=== PATIENT | female | born 1980 | race Hispanic/Latino ===

== ENCOUNTER 2020-03-21 10:19 | Outpatient (CLI) | payer OTHER, SELFPAY ==
--- NOTE | ~2020-03-21 | MM_ITS ---
EXAMINATION: MM screening gretchen BI w chacorta HISTORY: Screening mammogram TECHNIQUE: Craniocaudal and mediolateral oblique 3-D tomosynthesis images were obtained and synthetic 2-D images were generated. CAD analysis was submitted and interpreted. COMPARISON: 02/23/2019 bilateral digital screening mammogram BREAST PARENCHYMAL COMPOSITION: The breasts are heterogeneously dense, which may obscure small masses . FINDINGS: There is no evidence of suspicious mass, calcification, or architectural distortion to sugg est malignancy in either breast. There has been no suspicious interval change. IMPRESSION: 1. No mammographic evidence of malignancy. 2. Recommend routine screening mammography in one year. BI-RADS Category 1: Negative Reviewed, dictated and finalized at location A. 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
== END 2020-03-21 10:20 | disposition home or self-care (01) ==
PROVIDERS: PCP Internal Medicine; Visit Provider Obstetrics & Gynecology
DX: Z12.31 Encounter for screening mammogram for malignant neoplasm of breast (principal)
CPT/HCPCS: 77063; 77067

== ENCOUNTER 2020-04-09 14:58 | Outpatient (CLI) | payer OTHER, SELFPAY ==
--- NOTE | ~2020-04-09 | US_ITS ---
EXAMINATION: US pelvic complete w TV DATE: 04/09/2020 15:55 INDICATION: Uterine hypertrophy Comparison:Ultrasound dated 06/03/2017 TECHNIQUE: Multiple transabdominal and endovaginal sonographic images of the pelvis performed. FINDINGS: The uterus measures 8.1 x 5.3 x 3.6 cm. There is a uterine fibroid measuring 6.3 x 6 x 5.2 cm The endometrial complex measures 8 mm. The right ovary measures 2.9 x 2.4 x 2 cm and the left ovary is not visualized. There is a 2.1 cm rig ht ovarian cyst. There is no free fluid in the pelvis. There are no abnormal masses seen on either side. IMPRESSION: 1. Uterine fibroid measuring 6.3 cm maximum dimension. 2: 2.1 cm right ovarian cyst. Reviewed, dictated and finalized at location A. 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
== END 2020-04-09 14:59 | disposition home or self-care (01) ==
PROVIDERS: PCP Internal Medicine; Visit Provider Obstetrics & Gynecology
DX: N85.2 Hypertrophy of uterus (principal); D25.9 Leiomyoma of uterus, unspecified; N83.201 Unspecified ovarian cyst, right side
CPT/HCPCS: 76830; 76856

== ENCOUNTER → 2020-08-02 09:15 | Outpatient (CLI) | payer OTHER, SELFPAY ==
[2020-08-02 19:39] LABS: SARS-CoV-2 RNA PCR Negative
== END ==
PROVIDERS: PCP Internal Medicine; Visit Provider Internal Medicine
DX: R68.89 Other general symptoms and signs (principal); Z20.822 Contact with and (suspected) exposure to COVID-19
CPT/HCPCS: C9803; U0003; U0005

== ENCOUNTER → 2020-12-06 01:08 | Outpatient (CLI) | payer OTHER, SELFPAY ==
[2020-12-06 20:12] LABS: SARS-CoV-2 RNA PCR Negative
== END ==
PROVIDERS: PCP Internal Medicine; Visit Provider Nurse Practitioner
DX: R51.9 Headache, unspecified (principal); R19.7 Diarrhea, unspecified; Z20.822 Contact with and (suspected) exposure to COVID-19
CPT/HCPCS: C9803; U0003; U0005

== ENCOUNTER 2020-12-13 11:41 | Outpatient (CLI) | payer OTHER, SELFPAY ==
--- NOTE | ~2020-12-13 | XR_ITS ---
EXAMINATION: XR chest 2V EXAM DATE: 12/13/2020 11:56 INDICATION: R05 - Cough, shortness of breath, midsternal chest pain since Wednesday. TECHNIQUE: Frontal and lateral projections of the chest obtained and reviewed. There is no prior rigoberto dy for comparison. FINDINGS: Approximately 5 cm rounded left midlung zone opacity, most likely pneumonia. The lungs are otherwise clear. There are no pleural effusions. The cardiomediastinal silhouette is within normal limits. There is no pneumothorax suspected. The bones and soft tissues are unremarkable. IMPRESSION: Focal left lung opacity could be bacterial or viral pneumonia. A one-month follow-up x-ra y is recommended. I phoned 's office, is presently closed. Patient's phone number [phone], I discussed the results with the patient. She states that she had recent exposure to COVID but a negative COVID test. COVID p neumonia more typically is bilateral. I recommended she telephone her doctor's office after 1 p.m. wh en they open, they should be able to view these results. Reviewed, dictated and finalized at location A. IMPRESSION: Focal left lung opacity could be bacterial or viral pneumonia. A on e-month follow-up x-ray is recommended. I phoned 's office, is presently closed. Patient's phone number [phone], I discussed the results with the patient. She states that she had recent exposure to COVID but a negative COVID test. COVID pneumonia more typically is bilatera l. I recommended she telephone her doctor's office after 1 p.m. when they open, they should be able to view these results.
== END 2020-12-13 11:42 | disposition home or self-care (01) ==
LOC: ANHIMG 11:47
PROVIDERS: PCP Internal Medicine; Visit Provider Internal Medicine
DX: R05 Cough (principal); R06.02 Shortness of breath; R91.8 Other nonspecific abnormal finding of lung field
CPT/HCPCS: 71046

== ENCOUNTER 2020-12-13 13:19 | Emergency (ER) | payer OTHER, SELFPAY ==
--- NOTE | ~2020-12-13 | XR_ITS ---
EXAMINATION: XR chest 1V portable DATE: 12/13/2020 13:45 INDICATION: Chest pain. Shortness of breath. TECHNIQUE: A single frontal view of the chest was obtained. COMPARISON: Chest 2 views 12/13/2020 at 11:51 AM FINDINGS: There are patchy airspace opacities in left mid and lower lung zones. No pleural effusion o r pneumothorax. The heart size is normal. IMPRESSION: 1. Patchy airspace opacities in left mid and lower lung zones, consistent with pneumonia. Reviewed, dictated and finalized at location A.
[2020-12-13 13:26] VITALS: BP 132/72; PULSE 98; RESP 20; TEMP 36.8; O2SAT 99
--- NOTE | 2020-12-13 13:29 | ECG_ITS ---
Measurements Intervals [place] Rate: 96 P: 56 MN: 134 QRS: 42 QRSD: 90 T: 8 QT: 351 QTc: 445 Interpretive Statements SINUS RHYTHM INCOMPLETE RIGHT BUNDLE BRANCH BLOCK BORDERLINE T WAVE ABNORMALITY- INFERIOR LEADS BORDERLINE ECG Electronically Signed On 12-13-2020 14:09:07 CDT by Bryant Gates D.O.
[2020-12-13 13:36] VITALS: O2SAT 99
[2020-12-13 13:46] LABS: Basophils Percent Auto 0.2 % (0.2-1.2); Eosinophils Percent Auto 0.2 % (0-4.4); Hematocrit 38.7 % (37.0-47.0); Hemoglobin 12.9 g/dL (12.0-15.0); Immature Granulocyte Absolute 0.01 K/mm3 (0.00-0.031); Immature Granulocyte Percent A 0.2 % (0-0.5); Lymphocytes Absolute Auto 1.22 K/mm3 (0.9-3.2); Lymphocytes Percent Auto 22.8 % (18.3-44.2); Mean Corpuscular HGB Conc 33.3 g/dl (32-36); Mean Corpuscular Hemoglobin 27.9 pg (26-34); Mean Corpuscular Volume 83.8 fl (80-100); Mean Platelet Volume 10.2 fl (7.4-10.4); Monocytes Absolute Auto 0.3 K/mm3 (0.1-0.6); Monocytes Percent Auto 5.6 % (2.6-8.5); Neutrophils Absolute Auto 3.8 K/mm3 (1.3-6.7); Platelet Count Result 175 k/mm3 (150-375); Red Blood Count 4.62 M/mm3 (4.2-5.4); Red Cell Distribution Width 13.4 % (11.5-14.5); White Blood Count 5.3 K/mm3 (4.5-10.0)
--- NOTE | 2020-12-13 13:51 | ED.URI ---
HPI - URI/Sore Throat General Chief Complaint: Upper Respiratory Infection Stated Complaint: Dx Pneumonia today Time Seen by Provider: 12/13/20 13:34 Source: patient Mode of arrival: ambulatory Limitations: no limitations History of Present Illness HPI Narrative: Patient is a 40-year-old female complaining of cough, chest congestion, chest pain when coughing, fever and chills for the past 3 days. Patient states that her cough is productive, clear sputum. Patient states that her tested positive for Covid 3 days ago. Patient denies any shortness of breath, abdominal pain, nausea, vomiting, or diarrhea. Related Data Home Medications Medication Instructions Recorded Confirmed No Home Medications 12/13/20 12/13/20 Allergies Allergy/AdvReac Type Severity Reaction Status Date / Time No Known Allergies Allergy Verified 12/13/20 13:37 Review of Systems Review of Systems: All systems reviewed & are unremarkable except as noted in HPI and below Constitutional: Constitutional: Denies body ache(s), Denies excessive sweating, Denies fatigue, Denies headache(s), Denies lethargy, Denies malaise, Denies weakness and Denies weight loss Eyes: Eyes: Denies blurry vision, Denies change in vision and Denies loss of vision ENT: Denies dizziness, Denies ear discharge, Denies headache(s), Denies lip swelling, Denies epistaxis, Denies nasal congestion, Denies neck pain, Denies throat swelling and Denies tongue swelling Cardiovascular: Cardiovascular: Denies chest pain, Denies chest pain at rest, Denies chest pain with activity, Denies diaphoresis, Denies rapid heart rate, Denies edema, Denies irregular heart rhythm, Denies lightheadedness, Denies palpitations, Denies dyspnea and Denies dyspnea on exertion Respiratory: Respiratory: Denies hemoptysis, Denies dyspnea and Denies dyspnea on exertion Gastrointestinal: Gastrointestinal: Denies abdominal pain, Denies melena, Denies hematochezia, Denies diarrhea, Denies nausea, Denies vomiting and Denies hematemesis Musculoskeletal: Musculoskeletal: Denies abnormal gait, Denies deformity, Denies joint swelling, Denies limited range of motion, Denies neck pain and Denies numbness Neurologic: Denies Abnormal speech present, Denies abnormal gait, Denies confusion, Denies dizziness, Denies headache(s), Denies focal weakness, Denies loss of vision, Denies numbness, Denies Other visual disturbances, Denies Sensory deficit (Neuro) and Denies weakness Psychiatric: Psychiatric: Denies confusion, Denies depression, Denies auditory hallucinations, Denies homicidal ideation and Denies suicidal ideation Endocrine: Endocrine: Denies cold intolerance, Denies excessive sweating, Denies fatigue, Denies heat intolerance and Denies palpitations Hematologic/Lymphatic: Hematologic/Lymphatic: Denies easy bleeding and Denies easy bruising Allergic/Immunologic: Allergic/Immunologic: Denies lip swelling, Denies throat swelling and Denies tongue swelling PMFSH Family History Family History Mother Patient's mother is in good health Father Patient's father is in good health Sibling Patient's sister is in good health Social History Social History Smoking status: Never smoker Second hand tobacco smoke exposure: No Alcohol intake: never Comments Past medical history: None Family history: Negative for coronary disease or [place] Social history: Non-smoker no EtOH or drug use Exam Const: General: cooperative, healthy appearing, comfortable, no acute distress, well developed, alert and awake; No confusion Orientation/consciousness: oriented to person, oriented to place, oriented to time, patient oriented x3 and No confusion Limitations: no limitations HENMT: Head: normal to inspection, normocephalic and atraumatic Ears: hearing grossly normal bilaterally, TM normal on the right and TM normal on the le
[2020-12-13 14:02] LABS: INR 0.9; Prothrombin Time 12.2 Seconds (11.1-14.7)
[2020-12-13 14:03] LABS: Partial Thromboplastin Time 32.8 SECONDS (22.3-36.8)
[2020-12-13 14:06] LABS: Anion Gap 10 mmol/L (8-16); Blood Urea Nitrogen 7 mg/dL (7-17); Calcium 8.2 mg/dL (8.4-10.2); Carbon Dioxide 25 mmol/L (22-30); Chloride 100 mmol/L (98-107); Estimated CRCL calculation 112 ml/min; Estimated Glomerular Filt Rate > 60; Glucose 101 mg/dL (65-110); Sodium 135 mmol/L (137-145)
[2020-12-13 14:16] LABS: Troponin I < 0.012 ng/mL (0.000-0.034)
[2020-12-13 14:37] VITALS: BP 116/63; PULSE 100; RESP 19; O2SAT 100
[2020-12-13 17:08] LABS: Troponin I < 0.012 ng/mL (0.000-0.034)
[2020-12-13] MEDS: POTASSIUM CHLORIDE 20 MEQ PACKET (FOR LIQUID) 40 MEQ PO (17:25)
[2020-12-13 17:36] VITALS: BP 115/76; PULSE 98; RESP 20; O2SAT 99
[2020-12-14 22:45] LABS: SARS-CoV-2 RNA PCR Positive
== END 2020-12-13 17:37 | disposition home or self-care (01) ==
PROVIDERS: Emergency Medicine; Emergency Provider Emergency Medicine; PCP Internal Medicine
DX: U07.1 COVID-19 (principal); J12.82 Pneumonia due to coronavirus disease 2019; I45.10 Unspecified right bundle-branch block; R94.31 Abnormal electrocardiogram [ECG] [EKG]
CPT/HCPCS: 36415; 71045; 80048; 83605; 84484; 85025; 85610; 85730; 87040; 93005; 96374; 99284; A9270; C9803; J1100; U0003; U0005

== ENCOUNTER 2021-01-16 15:32 | Outpatient (CLI) | payer OTHER, SELFPAY ==
--- NOTE | ~2021-01-16 | XR_ITS ---
XR chest 2V DATE: 01/16/2021 15:55 INDICATION: Covid positive one month TECHNIQUE: PA and lateral views COMPARISON: 12/13/2020 portable AP chest 12/13/2020 2 view chest FINDINGS: Normal heart size. No hilar or mediastinal enlargement. No pulmonary infiltrate or consol idation, pulmonary vascular congestion or pleural effusion or pneumothorax. There is discoid atelecta sis or scar in the left lower lobe. IMPRESSION: Discoid atelectasis or scar, left lower lobe Reviewed, dictated and finalized at location B.
== END 2021-01-16 15:33 | disposition home or self-care (01) ==
LOC: ANHIMG 15:36
PROVIDERS: PCP Internal Medicine; Visit Provider Nurse Practitioner
DX: J12.82 Pneumonia due to coronavirus disease 2019 (principal); U07.1 COVID-19; R91.8 Other nonspecific abnormal finding of lung field
CPT/HCPCS: 71046

== ENCOUNTER 2021-04-24 08:12 | Outpatient (CLI) | payer OTHER, SELFPAY ==
--- NOTE | ~2021-04-24 | MM_ITS ---
EXAMINATION: MM screening gretchen BI w chacorta HISTORY: Screening mammogram TECHNIQUE: Craniocaudal and mediolateral oblique 3-D tomosynthesis images were obtained and synthetic 2-D images were generated. CAD analysis was submitted and interpreted. COMPARISON: 04/07/2020, 02/23/2019 bilateral screening mammogram examinations BREAST PARENCHYMAL COMPOSITION: The breasts are heterogeneously dense, which may obscure small masses . FINDINGS: There is no evidence of suspicious mass, calcification, or architectural distortion to sugg est malignancy in either breast. There has been no suspicious interval change. IMPRESSION: 1. No mammographic evidence of malignancy. 2. Recommend routine screening mammography in one year. BI-RADS Category 1: Negative Reviewed, dictated and finalized at location A. 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
== END 2021-04-24 08:13 | disposition home or self-care (01) ==
PROVIDERS: PCP Internal Medicine; Visit Provider Obstetrics & Gynecology
DX: Z12.31 Encounter for screening mammogram for malignant neoplasm of breast (principal)
CPT/HCPCS: 77063; 77067

== ENCOUNTER → 2021-05-02 09:58 | Outpatient (CLI) | payer OTHER, SELFPAY ==
[2021-05-03 23:20] LABS: SARS-CoV-2 RNA PCR Negative
== END ==
PROVIDERS: PCP Internal Medicine; Visit Provider Internal Medicine
DX: R68.89 Other general symptoms and signs (principal); Z20.822 Contact with and (suspected) exposure to COVID-19
CPT/HCPCS: C9803; U0003; U0005

== ENCOUNTER 2021-08-05 13:42 | Outpatient (CLI) | payer OTHER, SELFPAY ==
--- NOTE | ~2021-08-05 | US_ITS ---
EXAMINATION: US pelvic complete w TV EXAM DATE: 08/05/2021 14:28 INDICATION: N85.2 - Hypertrophy of uterus. TECHNIQUE: Pelvic transabdominal and transvaginal sonogram was performed. There are multiple graysca le and Doppler images available for interpretation. Comparison is made to prior examination from 03/20. FINDINGS: Uterus measures 9.3 x 8.4 x 5.8 cm, with a solid mass in the fundus measuring 6.5 x 7.9 x 5.2, a fibroid. Measurements on previous exam where 6.0 x 6.3 x 5.2. Endometrial stripe measures 6 mm , within normal limits. There is no free pelvic fluid. Right adnexa: The ovary measures 3.0 x 1.3 x 1.1 cm and is morphologically normal. Ovarian vascular f low confirmed. Left adnexa: The ovary measures 2.3 x 2.0 x 1.7 cm and is morphologically normal. Ovarian vascular fl ow confirmed. IMPRESSION: Large fundal fibroid, mild increase in size. Reviewed, dictated and finalized at location A.
== END 2021-08-05 13:43 | disposition home or self-care (01) ==
LOC: ANHIMG 13:46
PROVIDERS: PCP Internal Medicine; Visit Provider Obstetrics & Gynecology
DX: N85.2 Hypertrophy of uterus (principal); D25.9 Leiomyoma of uterus, unspecified
CPT/HCPCS: 76830; 76856

== ENCOUNTER 2022-01-10 11:07 | Emergency (ER) | payer OTHER, SELFPAY ==
[2022-01-10 11:17] VITALS: BP 135/75; PULSE 86; RESP 16; TEMP 37.1; O2SAT 100
--- NOTE | 2022-01-10 11:31 | ED.BACK ---
HPI - Back Pain/Injury General Chief Complaint: Back Pain/Injury Stated Complaint: injury to back, neck, and right shoulder Time Seen by Provider: 01/10/22 11:31 History of Present Illness HPI Narrative: Christelle Dietz is a 41 yo female who has a PMH of COVID-pneumonia who comes to the [facility] with complaining of right thoracic back pain after extending her arm yesterday at work so she and has pain in her neck that goes down to her shoulder and then mid back pain from trying to prevent package from dropping on top of another. 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 EYES: Denies visual changes, redness, discharge. ENT: Denies rhinorrhea, congestion, sore throat, otalgia. CARDIOVASCULAR: Denies chest pain, palpitations, edema. RESPIRATORY: Denies dyspnea, wheezing, cough GASTROINTESTINAL: Denies abdominal pain, nausea, vomiting, diarrhea. GENITOURINARY: Denies dysuria, hematuria, abnormal discharge SKIN: Denies rash or itching. NEUROLOGIC: Denies numbness, or focal weakness. PSYCHIATRIC: Denies anxiety or depression. Right upper back pain and neck pain PMFSH Surgical History Surgical History S/P nasal surgery Family History Family History Mother Patient's mother is in good health Father Patient's father is in good health Sibling Patient's sister is in good health Social History Social History Smoking status: Never smoker Second hand tobacco smoke exposure: No Alcohol intake: never Substance use: never Substance use type: does not use Comments At time of signature, I agree with nursing past medical, surgical, social and family history. There is no relevant family history pertinent to the presenting complaint. Exam Narrative: GENERAL: This is a well-nourished, well-developed patient, in mild distress. HEAD: normocephalic, atraumatic. EYES: . Sclera clear/white. Vision is grossly intact. EARS: External ears normal, . Hearing grossly intact. NOSE: External nose normal without nasal discharge, nares without redness, no rhinorrhea. THROAT: Mucous membranes moist, NECK: Neck supple, non-tender CARDIOVASCULAR: Regular rate and rhythm without murmurs, gallops, or rubs. RESPIRATORY: Clear to auscultation. Breath sounds equal bilaterally. No wheezes, rales, or rhonchi. GASTROINTESTINAL: Abdomen soft, non-tender, SKIN: warm, intact with no suspicious lesions or rash, good texture and turgor. NEURO: awake, alert, and oriented to person, place and time. There were no obvious focal neurologic abnormalities. Steady gait EXTREMITIES: Normal range of motion. 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 area and post office Started on baclofen, told to use ice and ibuprofen if does not improve should go to Workmen's Comp. physician Level of Care: Express Care Visit Vital Signs Vital signs: Vital Signs Temperature 98.7 F 01/10/22 11:17 Pulse Rate 86 01/10/22 11:17 Respiratory Rate 16 01/10/22 11:17 Blood Pressure 135/75 01/10/22 11:17 Pulse Oximetry 100 01/10/22 11:17 Oxygen Delivery Room Air 01/10/22 11:17 Temperature 98.7 F 01/10/22 11:17 Pulse Rate 86 01/10/22 11:17 Respiratory Rate 16 01/10/22 11:17 Blood Pressure 135/75 01/10/22 11:17 Pulse Oximetry 100 01/10/22 11:17 Oxygen Delivery Room Air 01/10/22 11:17 MDM - B
== END 2022-01-10 11:46 | disposition home or self-care (01) ==
PROVIDERS: Emergency Provider Nurse Practitioner; PCP Internal Medicine
DX: S46.912A Strain of unspecified muscle, fascia and tendon at shoulder and upper arm level, left arm, initial encounter (principal); S16.1XXA Strain of muscle, fascia and tendon at neck level, initial encounter; X50.0XXA Overexertion from strenuous movement or load, initial encounter; Z86.16 Personal history of COVID-19
CPT/HCPCS: 99213; G0463

== ENCOUNTER 2022-06-23 15:40 | Outpatient (CLI) | payer OTHER, SELFPAY ==
--- NOTE | ~2022-06-23 | MM_ITS ---
EXAMINATION: MM screening gretchen BI w chacorta HISTORY: Screening mammogram, family history of breast cancer in her mother. TECHNIQUE: Craniocaudal and mediolateral oblique 3-D tomosynthesis images were obtained and synthetic 2-D images were generated. CAD analysis was submitted and interpreted. COMPARISON: 04/24/2021, 03/21/2020, 02/23/2019 BREAST PARENCHYMAL COMPOSITION: The breasts are heterogeneously dense, which may obscure small masses . FINDINGS: RIGHT BREAST: An asymmetry is present in the posterior third of the outer breast best appreciated 8 c m from the nipple on the craniocaudal view. LEFT BREAST: There is a possible mass in the middle third of inner breast best appreciated 5 cm from the nipple on the craniocaudal view IMPRESSION: 1. Bilateral breast findings as above. 2. Additional mammographic views and possible breast ultrasound are recommended. BI-RADS Category 0: Incomplete: Needs additional imaging evaluation. Reviewed, dictated and finalized at location A. 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 Bilateral breast findings as above. 2. Additional mammographic views and possible breast ultrasound are recommended . BI-RADS Category 0: Incomplete: Needs additional imaging evaluation.
== END 2022-06-23 15:41 | disposition home or self-care (01) ==
PROVIDERS: PCP Internal Medicine; Visit Provider Obstetrics & Gynecology
DX: Z12.31 Encounter for screening mammogram for malignant neoplasm of breast (principal); R92.8 Other abnormal and inconclusive findings on diagnostic imaging of breast
CPT/HCPCS: 77063; 77067

== ENCOUNTER 2022-07-09 13:09 | Outpatient (CLI) | payer OTHER, SELFPAY ==
--- NOTE | ~2022-07-09 | MMUS_ITS ---
EXAMINATION: MM diagnostic gretchen BI w chacorta, US breast BI complete HISTORY: Follow-up breast masses TECHNIQUE: Additional 3-D tomosynthesis images of the breasts were performed and synthetic 2-D images were generated. CAD analysis was submitted and interpreted. High resolution bilateral complete breas t ultrasound was performed. COMPARISON: Comparison to multiple prior studies sequentially, with oldest reviewed study dated 10/2018. BREAST PARENCHYMAL COMPOSITION: BREAST PARENCHYMAL COMPOSITION: There are scattered areas of fibroglandular density. FINDINGS: MAMMOGRAPHIC FINDINGS: There are no suspicious masses, calcifications or architectural distortion in either breast to sugges t malignancy. ULTRASOUND: Complete bilateral US of all 4 quadrants of the breasts and retroareolar region was reviewed. Right breast: Normal heterogeneous echotexture without focal solid or cystic mass. Left breast: At 6:00, 4 cm from the nipple, there is a 4 mm cyst. At 10:00, 3 cm from the nipple, there is an oval hypoechoic mass measuring 7 mm with parallel orientation, no posterior features and no internal vasc ularity, likely benign. IMPRESSION: 1. Probable benign left breast mass at 10:00, 3 cm from the nipple. No evidence for malignancy in the right breast. 2. Recommend 6 month follow-up Limited left breast ultrasound BI-RADS category 3, probably benign findings. Reviewed, dictated and finalized at location A. IMPRESSION: 1. Probable benign left breast mass at 10:00, 3 cm from the nipple. No evidence for malignancy in the right breast. 2. Recommend 6 month follow-up Limited left breast ultrasound BI-RADS category 3, probably benign findings.
== END 2022-07-09 13:10 | disposition home or self-care (01) ==
LOC: ANHIMG 13:10
PROVIDERS: PCP Internal Medicine; Visit Provider Obstetrics & Gynecology
DX: R92.8 Other abnormal and inconclusive findings on diagnostic imaging of breast (principal)
CPT/HCPCS: 76641; 77062; 77066; G0279

== ENCOUNTER → 2023-04-29 07:51 | Outpatient (CLI) | payer OTHER, SELFPAY ==
--- NOTE | ~2023-04-29 | US_ITS ---
EXAMINATION: US breast LT limited HISTORY: Six-month follow-up for probably benign sonographically detected left breast mass. TECHNIQUE: Limited left breast ultrasound is performed. COMPARISON: 07/09/2022 FINDINGS: There is a 6 mm x 2 mm oval, circumscribed, parallel, hypoechoic mass with no posterior fea tures or internal vascularity at the 10:00 location, 3 cm from the nipple which demonstrates interval decrease in size, consistent with a benign finding. No suspicious mass is identified. IMPRESSION: Left breast mass with decrease in size, consistent with a benign finding. Screening mammography is re commended, due in June. BI-RADS Category 2: Benign finding(s). Reviewed, dictated and finalized at location A. GER OF DISTRIBUTION IMPRESSION: Left breast mass with decrease in size, consistent with a benign finding. Scree anthony mammography is recommended, due in June. BI-RADS Category 2: Benign finding(s).
== END ==
PROVIDERS: PCP Obstetrics & Gynecology; Visit Provider Obstetrics & Gynecology
DX: R92.8 Other abnormal and inconclusive findings on diagnostic imaging of breast (principal)
CPT/HCPCS: 76642

== ENCOUNTER 2023-06-06 09:57 | Emergency (ER) | payer OTHER, SELFPAY ==
[2023-06-06 10:13] VITALS: BP 115/68; PULSE 97; RESP 18; TEMP 37.2; O2SAT 99
--- NOTE | 2023-06-06 10:29 | ED.URI ---
HPI - URI/Sore Throat General Chief Complaint: Upper Respiratory Infection Stated Complaint: Sore Throat Time Seen by Provider: 06/06/23 10:32 Source: patient and RN notes reviewed Mode of arrival: ambulatory Limitations: no limitations History of Present Illness HPI Narrative: 43-year-old female presents concern for sore throat for 3 days. She reports sinus congestion and drainage and right ear pain. She denies headache ache. She reports she was exposed to strep throat. MD elicited complaint: cough and sore throat Related Data Allergies Allergy/AdvReac Type Severity Reaction Status Date / Time No Known Allergies Allergy Verified 06/06/23 10:02 Review of Systems Review of Systems: CONSTITUTIONAL: Denies malaise, chills, sweats, or fever. EYES: Denies visual changes, redness, or discharge. ENT: Reports rhinorrhea, congestion, and sore throat. CARDIOVASCULAR: Denies chest pain, palpitations, or edema. RESPIRATORY: Denies cough. Denies dyspnea. GASTROINTESTINAL: Denies abdominal pain, nausea, vomiting, diarrhea SKIN: Denies rash or itching. MUSCULOSKELETAL: Denies myalgia. NEUROLOGIC: Denies headache. All systems reviewed & are unremarkable except as noted in HPI and below PMFSH Past Medical History Medical History History of shingles Surgical History Surgical History S/P nasal surgery Family History Family History Mother Patient's mother is in good health Father Patient's father is in good health Sibling Patient's sister is in good health Social History Social History Smoking status: Never smoker Second hand tobacco smoke exposure: No Alcohol intake: never Substance use: never Substance use type: does not use Lack of Transportation: No Lack of Food: Sometimes True Current Housing: I Have Housing Concerned About Future Housing: No Difficulty Paying Gas/Electric Bills: YES Difficulty Paying for Meds: No Currently Unemployed: No Education: Bachelor's Degree Difficulty w/ Childcare or Family Care: YES Comments At time of signature, agree with nursing past medical, surgical, social and family history. There is no relevant family history pertinent to the presenting complaint Exam Narrative: GENERAL: Well-appearing, well-nourished, and in no acute distress. HEAD: Normocephalic EYES: PERRLA, conjunctivae clear ENT: Nares clear, turbinates edematous and erythematous, clear discharge. Mucous membranes moist. TM pearly liang with dull light reflex bilaterally; no tragal tenderness. Oropharynx erythematous without lesions. Tonsils enlarged and without exudate, no drooling, no hoarseness, no trismus, uvula midline. NECK: Supple. No lymphadenopathy CHEST: Clear to auscultation, breath sounds equal. No wheezing, rhonchi, rales, or stridor. No respiratory distress, speaks in full sentences. HEART: Regular rate and rhythm. No murmur heard. SKIN: Warm, dry, no rash. NEURO: Alert and oriented x3. PSYCH: Normal mood and affect Course Course Emergency Course: Patient is aware of diagnosis, understands and agrees to treatment plan. Anticipatory guidance given. Patient agrees to follow-up as directed and is aware of reasons to seek care at the emergency department. Portions of this record may have been created with voice recognition software Level of Care: Express Care Visit Vital Signs Vital signs: Vital Signs Oxygen Delivery Room Air 06/06/23 10:10 Temperature 98.9 F 06/06/23 10:13 Pulse Rate 97 06/06/23 10:13 Respiratory Rate 18 06/06/23 10:13 Blood Pressure 115/68 06/06/23 10:13 Pulse Oximetry 99 06/06/23 10:13 Oxygen Delivery Room Air 06/06/23 10:13 Reviewed. MDM - URI/Sore Throat MDM Narrative Medical decision
== END 2023-06-06 10:47 | disposition home or self-care (01) ==
PROVIDERS: Emergency Provider Nurse Practitioner; PCP Nurse Practitioner Family
DX: J02.0 Streptococcal pharyngitis (principal); Z20.822 Contact with and (suspected) exposure to COVID-19
CPT/HCPCS: 87426; 87804; 87880; 99213; G0463

== ENCOUNTER 2023-08-10 10:34 | Emergency (ER) | payer OTHER, SELFPAY ==
[2023-08-10 10:43] VITALS: BP 108/66; PULSE 105; RESP 16; TEMP 36.3; O2SAT 99
--- NOTE | 2023-08-10 10:54 | ED.URI ---
HPI - URI/Sore Throat General Chief Complaint: Upper Respiratory Infection Stated Complaint: Bodyaches/Chills Time Seen by Provider: 08/10/23 10:45 Source: patient Mode of arrival: ambulatory Limitations: no limitations History of Present Illness HPI Narrative: Christelle is a 43-year-old female patient presenting to the clinic today with complaints of body aches, chills, sore throat, and headaches. She reports her symptoms started Wednesday. No known fever. MD elicited complaint: sore throat, nasal congestion and other (Chills) Related Data Allergies Allergy/AdvReac Type Severity Reaction Status Date / Time No Known Allergies Allergy Verified 08/10/23 10:47 Review of Systems Review of Systems: Pertinent positives per HPI. Patient denies any fever, chills, rash, headache, visual changes, dizziness, cough, shortness of breath, chest pain, palpitations, nausea, vomiting, diarrhea, constipation, abdominal pain, or any urinary issues. PMFSH Past Medical History Medical History History of shingles Surgical History Surgical History S/P nasal surgery Family History Family History Mother Patient's mother is in good health Father Patient's father is in good health Sibling Patient's sister is in good health Social History Social History Smoking status: Never smoker Second hand tobacco smoke exposure: No Alcohol intake: never Substance use: never Substance use type: does not use Lack of Transportation: No Lack of Food: Sometimes True Current Housing: I Have Housing Concerned About Future Housing: No Difficulty Paying Gas/Electric Bills: YES Difficulty Paying for Meds: No Currently Unemployed: No Education: Bachelor's Degree Difficulty w/ Childcare or Family Care: YES Comments At the time of my signature, I reviewed and agree with the nursing past medical, surgical, social, and family history. There is no relevant family history pertinent to the patient complaint. Exam Narrative: General: Well-developed, well nourished, in no apparent distress Head: Normocephalic, atraumatic Eyes: Pupils equally round and reactive to light bilaterally, EOM intact, sclera and conjunctive clear, no discharge, lids normal Ears: TMs intact and clear, ear canals clear, no drainage, grossly hearing normal. Nose: Nares patent, clear discharge, no inflammation, no sinus tenderness. Mouth: Oral pharynx red with bilateral tonsillar enlargement without lesions or masses, good dentition, MMM. Neck: Supple, trachea midline,enlargement of anterior cervical nodes, no thyroid masses or goiter palpable. Cardio: Regular rate and rhythm, s1 and s2 normal, no murmur appreciated. Resp: Clear to auscultation bilaterally, no rhonchi, rales, wheezing or rubs Course Course Emergency Course: Portions of this record may have been created with voice recognition software. Level of Care: Express Care Visit Vital Signs Vital signs: Vital Signs Temperature 36.3 C L 08/10/23 10:43 Pulse Rate 105 H 08/10/23 10:43 Respiratory Rate 16 08/10/23 10:43 Blood Pressure 108/66 08/10/23 10:43 Pulse Oximetry 99 08/10/23 10:43 Oxygen Delivery Room Air 08/10/23 10:43 Temperature 36.3 C L 08/10/23 10:43 Pulse Rate 105 H 08/10/23 10:43 Respiratory Rate 16 08/10/23 10:43 Blood Pressure 108/66 08/10/23 10:43 Pulse Oximetry 99 08/10/23 10:43 Oxygen Delivery Room Air 08/10/23 10:43 Vital signs reviewed MDM - URI/Sore Throat MDM Narrative Medical decision making narrative: At the time of visit patient is resting comfortably on the exam table. Patient appears to be nontoxic. Labs: COVID, influenza, and strep test was performed. Strep test was positive. COV
== END 2023-08-10 11:20 | disposition home or self-care (01) ==
PROVIDERS: Emergency Provider Nurse Practitioner Family; PCP Nurse Practitioner Family
DX: J02.0 Streptococcal pharyngitis (principal); Z20.822 Contact with and (suspected) exposure to COVID-19
CPT/HCPCS: 87426; 87804; 87880; 99213; G0463

== ENCOUNTER 2024-03-02 11:12 | Emergency (ER) | payer OTHER, SELFPAY ==
--- NOTE | ~2024-03-02 | XR_ITS ---
EXAMINATION: XR chest 2V DATE: 03/02/2024 11:36 INDICATION: 5 days of cough TECHNIQUE: PA and lateral views of the chest were obtained. COMPARISON: Chest radiograph dated 01/16/21 FINDINGS: The lungs are clear with no focal airspace opacities, pulmonary edema, pleural effusion or pneumothor ax. The cardiomediastinal silhouette is normal. Thoracic spondylosis. IMPRESSION: 1. No acute cardiopulmonary disease. Reviewed, dictated and finalized at location B. O INSTALLER
[2024-03-02 11:18] VITALS: BP 104/69; PULSE 76; RESP 20; TEMP 36.6; O2SAT 99
--- NOTE | 2024-03-02 11:21 | ED_ITS ---
HPI - URI/Sore Throat General Chief Complaint: Upper Respiratory Infection Stated Complaint: Sinus Time Seen by Provider: 03/02/24 11:21 Source: patient, RN notes reviewed and old records reviewed Mode of arrival: ambulatory Limitations: no limitations History of Present Illness HPI Narrative: 44-year-old female presents to the [facility] with complaints of 5 day history of sinus congestion, dry cough that is worse when she is outside. Denies fevers. States that she has chest discomfort when she coughs. Has taken NyQuil Onset (ago): day(s) (5) Related Data Allergies Allergy/AdvReac Type Severity Reaction Status Date / Time No Known Allergies Allergy Verified 03/02/24 11:14 Review of Systems Review of Systems: All systems reviewed & are unremarkable except as noted in HPI and below Constitutional: Constitutional: Reports no additional constitutional complaints ENT: Reports as per HPI Cardiovascular: Cardiovascular: Reports no additional cardiovascular complaints, Denies chest pain and Denies dyspnea Respiratory: Respiratory: Reports as per HPI, Denies chest congestion, Reports cough and Denies dyspnea Gastrointestinal: Gastrointestinal: Reports no additional gastrointestinal complaints, Denies abdominal pain, Denies nausea and Denies vomiting Musculoskeletal: Musculoskeletal: Reports no additional musculoskeletal complaints Integumentary/Breasts: Skin/Breast: Reports system reviewed and no additional complaints, except as docu PMFSH Past Medical History Medical History Allergic rhinitis Exposure to COVID-19 virus History of shingles Pneumonia due to 2019 novel coronavirus Surgical History Surgical History S/P nasal surgery Family History Family History Mother Patient's mother is in good health Father Patient's father is in good health Sibling Patient's sister is in good health Social History Social History Smoking status: Never smoker Second hand tobacco smoke exposure: No Alcohol intake: never Substance use: never Substance use type: does not use Lack of Transportation: No Lack of Food: Sometimes True Current Housing: I Have Housing Concerned About Future Housing: No Difficulty Paying Gas/Electric Bills: YES Difficulty Paying for Meds: No Currently Unemployed: No Education: Bachelor's Degree Difficulty w/ Childcare or Family Care: YES Comments At the time of my signature, I reviewed and agree with the nursing past medical, surgical, social, and family history. There is no relevant family history pertinent to the patient complaint. Exam Const: General: cooperative, healthy appearing, comfortable, no acute distress, well developed, alert and well nourished Nutritional Appearance: well nourished Orientation/consciousness: patient oriented x3 Limitations: no limitations HENMT: Head: normal to inspection Ears: hearing grossly normal bilaterally, external ears normal, EAC's normal, mastoids normal, no periauricular adenopathy and TM abnormal with fluid behind the TM bilateral; not bulging Face/Nose/Sinus: Normal external nose present, normal facial exam and face symmetric Face and sinus: normal facial exam and face symmetric Mouth: Yes Normal oral and palatal mucosa present, Yes lip normal and Yes tongue normal Throat: posterior oropharynx normal, tonsils normal, uvula midline, postnasal drainage and no uvular edema Eyes: General: appearance normal, both eyes and all related structures A lignment and Position: alignment normal Periorbital: periorbital findings normal Neck: Neck: normal visual inspection, full ROM, no lymphadenopathy and no meningeal signs Chest: Chest palpation & inspection: normal inspection of the chest Resp: Effort & Inspection: normal respiratory effort and able to speak in complete sentences Auscultation: clear to auscultation bilaterally, no crackles, no rales, no rhonchi and no wheezes Cardio: Rate: regular rate Skin: General skin exam: normal color and no rashes or lesions noted Lesions: no lesions Rashes: no rashes Wounds: no wounds Neuro: General: patient oriented x3, gait normal, tone normal, moves all extremities and no meningeal signs Cognition (Neuro): normal cognition Speech: normal speech Gait exam (Neuro): Normal gait present Extrem: General: normal to inspection, full ROM, capillary refill normal and normal gait Psych: Appearance: grossly normal and well kempt Mental Status: mental status grossly normal Speech and movement: Normal speech and movement present and Clear speech present Affect: normal affect Attitude: cooperative Course Course Level of Care: Express Care Visit Vital Signs Vital signs: Vital Signs Temperature 98 F 03/02/24 11:18 Pulse Rate 76 03/02/24 11:18 Respiratory Rate 20 03/02/24 11:18 Blood Pressure 104/69 03/02/24 11:18 Pulse Oximetry 99 03/02/24 11:18 Oxygen Delivery Room Air 03/02/24 11:18 Temperature 98 F 03/02/24 11:18 Pulse Rate 76 03/02/24 11:18 Respiratory Rate 20 03/02/24 11:18 Blood Pressure 104/69 03/02/24 11:18 Pulse Oximetry 99 03/02/24 11:18 Oxygen Delivery Room Air 03/02/24 11:18 Reviewed MDM - URI/Sore Throat MDM Narrative Medical decision making narrative: Patient sitting comfortably in exam room. Nontoxic, vitals stable. Patient in no acute distress Patient presents with 5 day history of URI symptoms. Flu, COVID, strep, chest x-ray were negative for acute findings Patient appropriate for outpatient treatment of URI Discharge instructions reviewed with patient, as well as provided in writing per nursing staff. The instructions also include specific and strict return/GO TO THE ER as well as f/u information. All questions have been answered, and the patient deny any further questions with discharge and discharge plan. Some parts of this dictation were generated by voice recognition software and may contain typographical and/or grammatical inaccuracies. Differential Diagnosis Differential diagnosis: Likely upper respiratory infection, otitis media, sinusitis, viral infection, bronchitis, influenza and pharyngitis Lab Data Labs: Lab Results 03/02/24 Range/Units 11:25 POC Influenza A Ag Negative (Negative) POC Influenza B Ag Negative (Negative) POC SARS CoV-2 Ag Negative (Negative) POC Grp A Strep Screen Negative (Negative) Review Imaging Data Radiologist's impression: EXAMINATION: XR chest 2V DATE: 03/02/2024 11:36 INDICATION: 5 days of cough TECHNIQUE: PA and lateral views of the chest were obtained. COMPARISON: Chest radiograph dated 01/16/21 FINDINGS: The lungs are clear with no focal airspace opacities, pulmonary edema, pleural effusion or pneumothorax. The cardiomediastinal silhouette is normal. Thoracic spondylosis. IMPRESSION: 1. No acute cardiopulmonary disease. Critical Care Time Critical Care Time Critical Care Time: No Discharge Plan Discharge Clinical Impression: Upper respiratory infection, Bronchitis Patient Disposition: Home, Self-Care Condition: Stable Instructions: Upper Respiratory Infection (ED), Acute Bronchitis (ED), Postnasal Drip (DC) Additional Instructions: Your rapid strep swab was negative today at [facility]. A throat culture will be sent to the laboratory for further testing. If the test is positive, you will receive a phone call within 48 hours and an appropriate antibiotic will be initiated at that time. Your rapid COVID test were negative Your rapid flu test was negative Your chest x-ray was negative for pneumonia Your symptoms are likely due to a viral illness, which is not treated with antibiotics. Viral symptoms typically last 7-10 days, coughs and runny nose can last for several weeks. -Alternate Tylenol and Motrin per package directions for fever or pain. -Antihistamine medication such as Benadryl at night and Zyrtec/Claritin/Charity during the day can help improve symptoms. -doing daily nasal irrigations can help relieve pressure your sinuses. Things like a Neti pot -Use Flonase twice a day for 5 days then daily to help reduce the inflammation and dry up your sinuses. -You can also use Sudafed or Mucinex. Be sure to drink plenty of water with these medications at least 8 ounces with every dose and it is important to drink 8 to 10 glasses of water per day. Water is a natural decongestant -Eat and drink things that are easy to swallow, like tea or soup, or popsicles. -Oral rinses such as: Salt water gargles and/or may use topical anesthetic (eg. Chloraseptic spray) or lozenges to relieve dryness or throat pain). -Frequent hand washing or hand molecular pathologist is one of the best ways to prevent spread of infection. -Using a vaporizer or humidifier at night will also help thin secretions and help with coughing up phlegm. -Follow up with primary care provider in 3-5 days if condition is not improving - For new or worsening symptoms go directly to the nearest ER Patient Language: Albanian Prescriptions: New methylprednisolone [Medrol (W[place])] 4 mg tablets,dose pack See Rx Instructions PO .COMPLEX Qty: 21 0RF Rx Instructions: orally per package directions No Action fluticasone propionate [Flonase Allergy Relief] 50 mcg/actuation spray,suspension 2 spray intranasal DAILY Qty: 16 2RF Rx Instructions: administer into each nostril Follow-up/Referrals: Marilyn Ramirez APRN [Primary Care Provider] - 1 Week ([facility] care follow [facility] ) Stand Alone Forms: Work/School Release IP Time of Disposition: 12:07
[2024-03-02 11:42] LABS: EDSTREPNEGPOS1 Negative (Negative)
[2024-03-02 11:46] LABS: EDCOVIDSCREEN Negative (Negative); EDINFLUASCREEN Negative (Negative); EDINFLUBSCREEN Negative (Negative)
== END 2024-03-02 12:10 | disposition home or self-care (01) ==
PROVIDERS: Emergency Provider Nurse Practitioner; PCP Nurse Practitioner Family
DX: J06.9 Acute upper respiratory infection, unspecified (principal); J40 Bronchitis, not specified as acute or chronic; Z20.822 Contact with and (suspected) exposure to COVID-19
CPT/HCPCS: 71046; 87081; 87426; 87804; 87880; 99213; G0463

== ENCOUNTER 2024-07-19 09:01 | Outpatient (CLI) | payer OTHER, SELFPAY ==
--- NOTE | ~2024-07-19 | MM_ITS ---
EXAMINATION: MM screening gretchen BI w chacorta HISTORY: Screening TECHNIQUE: Craniocaudal and mediolateral oblique 3-D tomosynthesis images were obtained and synthetic 2-D images were generated. CAD analysis was submitted and interpreted. COMPARISON: Comparison to multiple prior studies sequentially, with oldest reviewed study dated 10/2018. BREAST PARENCHYMAL COMPOSITION: Not dense: There are scattered areas of fibroglandular density. FINDINGS: The left breast is stable without evidence for malignancy. There are developing asymmetries centered in the upper outer quadrant of the right breast. IMPRESSION: 1. Developing right breast asymmetries. 2. Additional mammographic views and possible breast ultrasound are recommended. BI-RADS Category 0: Incomplete: Needs additional imaging evaluation. Reviewed, dictated and finalized at location A. IMPRESSION: 1. Developing right breast asymmetries. 2. Additional mammographic views and possible breast ultrasound are recommended . BI-RADS Category 0: Incomplete: Needs additional imaging evaluation.
--- OUTSIDE RECORDS SUMMARY | 2024-07-19 09:31 | XMS_ITS | Continuity of Care Document ---
Author Organization [facility] Address [address] [place] [address] Phone Care Team Providers Care Caterers Helper Name Role Phone Unavailable Unavailable Unavailable Advance Directives Directive Yes / No Effective Date File Name No Information Encounters Encounter Description Practice Location Reason(s) For Visit Diagnoses Date Provider Providers Copied on Encounter [facility], [address], [place], [place], [id number], [place] tel:[phone] [facility] No Information 201 7 No Information Referring Provider: ELIAS RANGEL, [address] [address],[place], [address]. tel:[phone] Family History Family Member Type Diagnosis Age At Onset No Information Payers Payer name Insurance type Covered republican ID Authoriza aneesh(s) [employer] PPO [id number] Social History Type Description Quantity Date Captured Comments Sex Female Smoking Status No Information Chief Complaint And Reason For Visit No Information History Of Present Illness Encounter Date Complaint History Of Prese nt Illness No Information Instructions Date Instruction Additional Infor mation No Information Assessments Type Assessment Date No Information
--- OUTSIDE RECORDS SUMMARY | 2024-07-19 09:31 | XMS_ITS | Clinical Summary ---
Author Organization [facility] Address [address] [place] [phone] Phone Care Team Providers Care Airconditioning Drafting Officer Name Role Phone Raleigh Jarrell MD Primary Care Provider [phone] Social History Tobacco Use Types Packs/Day Years Used Date Smoking Tobacco: Never Assessed Comments Unknown Sex and Gender Information Value Date Recorded Sex Assigned at Not on file Legal Sex Female 8:43 AM CDT Gender Identity Not on file Sexual Orientation Not on file Plan of Treatment Health Maintenance Due Date Last Done Comments HEPATITIS B VACCINES (1 of 3 - 19+ 3-dose series) 1998 PAP SMEAR 02/27/2000 CERVICAL CANCER SCREENING 2009 HPV/Cotest (30-65) 2009 PAP SMEAR 2009 BREAST CANCER SCREENING 2019 INFLUENZA VACCINE (#1) 2023 04/11/2017 COLORECTAL SCREENING 02/27/2024 Colorectal Cancer Screening 02/27/2024 FIT-DNA Q 3 years 02/27/2024 FIT/FOBT Q 1 year 02/27/2024 Flex Sig/CT Colonography Q 5 years 02/27/2024 DTAP/TDAP/TD VACCINES (2 - T d or Tdap) 04/11/2027 04/11/2017 HPV VACCINES Aged Out No longer eligi ble based on patient's age to complete this topic PNEUMOCOCCAL VACCINE 0-49 YEARS Aged Out No longer eligible based on patient's age to complete this topic Insurance [employer] PPO [id number] Care Teams Airconditioning Drafting Officer Relationship Specialty Start Date End Date Raleigh Jarrell MD [address] [facility] [address] [place] [address] PCP - General Internal Medicine 11/19/16
--- OUTSIDE RECORDS SUMMARY | 2024-07-19 09:31 | XMS_ITS | Referral Summary ---
Author Organization [facility] Address [address] [place] [address] Care Team Providers Care Ballistics Professor Name Role Phone Obi Seals Primary Care Provider Unavailabl e Allergies No known active allergies Medications cefuroxime (CEFTIN) 250 mg tablet Take 250 mg by mouth every 12 (twelve) hours X 10 days from 12/13/20 12/13/2020 Active ondansetron (ZOFRAN) 4 mg tablet Take 1 tablet (4 mg total) by mouth every 4 (four) hours as needed for nausea or vomiting 20 tablet 12/16/2020 Active Social History Tobacco Use Types Packs/Day Years Used Date Smoking Tobacco: Never Assessed Personal Safety Answer Date Recorded Getting School Help Needed Not on file 07/02 Comments Unknown Sex and Gender Information Value Date Recorded Sex Assigned at Not on file 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 Gender Identity Not on file Sexual Orientation Not on file Last Filed Vital Signs Vital Sign Reading Time Taken Comments Blood Pressure 109/70 12/16/2020 12:13 PM CDT Pulse 108 12/16/2020 12:13 PM CDT Temperature 36.1 C (97 F) 12/28/2020 11:33 AM CDT Respiratory Rate 18 12/16/2020 12:1 3 PM CDT Oxygen Saturation 98% 12/28/2020 11: 33 AM CDT Inhaled Oxygen Concentration - - Weight 67.9 kg (149 lb 11.1 oz) 021 10:42 AM CDT Height 157.5 cm (5' 2 ) 12/16/2020 10:4 2 AM CDT Body Mass Index 27.38 12/16/2020 10:42 AM CDT Plan of Treatment Not on file Insurance [employer] PPO Care Teams Ballistics Professor Relationship Specialty Start Date End Date Obi Seals PCP - General 01/07/09
--- OUTSIDE RECORDS SUMMARY | 2024-07-19 09:31 | XMS_ITS | Clinical Summary ---
Author Organization [facility] Address [address] [place] [address] Care Team Providers Care Store Team Leader Name Role Phone Raleigh Jarrell MD Primary Care Provider [phone] Source Comments [facility],non-owned Affiliates and Associated Physician Practices is amultiple site organization consisting of ambulatory clinics and hospital sitesin [place], [place], [place] and [place]. This disclosure is being madepursuant to the Care Everywhere program and may not contain all information available regarding this patient. Last updated 18.[facility] [employer] Allergies No known active allergies Immunizations Name Administration Dates Next Due INFLUENZA VACCINE, QUADR. (F LUZONE; FLULAVAL; FLUARIX; AFLURIA QUADRIVALENT; 6MO+), 0.5 ML (IIV4) 04/11/2017 TDAP (7yrs+) 04/11/2017 Social History Tobacco Use Types Packs/Day Years Used Date Smoking Tobacco: Never Assessed Sex and Gender Information Value Date Recorded Sex Assigned at Not on file Gender Identity Not on file Sexual Orientation Not on file Plan of Treatment Health Maintenance Due Date Last Done Comments COLOGUARD (AGES 45-75) - COL ON CA SCREENING 1979 COLON MONITORING 1979 COLONOSCOPY - COLON CA SCREENING 1979 CT COLONOGRAPHY - COLON CA SCREENING 1979 Colorectal Cancer Screening 1979 FIT - COLON CA SCREENING 1979 FLEX SIG - COLON CA SCREENING 1979 LIPID TESTING 1979 MAMMOGRAM 1979 PAP SMEAR 1979 HIV SCREENING 1994 HEPATITIS C SCREENING 02/21/1997 HEPATITIS B VACCINE (1 of 3 - 19+ 3-dose series) 1998 COVID-19 VACCINE (1 - 2023-2 5 season) 2023 INFLUENZA VACCINE (#1) 2023 04/11/2017 DEPRESSION SCREENING 04/19/2024 DTAP/TDAP/TD VACCINES (2 - T d or Tdap) 04/11/2027 04/11/2017 ZOSTER VACCINE (1 of 2) 2029 HIB VACCINE Aged Out No longer eligi ble based on patient's age to complete this topic HPV VACCINE Aged Out No longer eligi ble based on patient's age to complete this topic MENINGOCOCCAL (Group B) VACC INE SHARED DECISION-MAKING Aged Out No longer eligibl e based on patient's age to complete this topic MENINGOCOCCAL GROUPS A/C/Y/W VACCINE Aged Out No longer eligible b ased on patient's age to complete this topic PNEUMOCOCCAL VACCINE Aged Out No long er eligible based on patient's age to complete this topic Care Teams Store Team Leader Relationship Specialty Start Date End Date Raleigh Jarrell MD [address] [facility] [address] [place] [id number] PCP - General Internal Medicine 04/11/17
--- OUTSIDE RECORDS SUMMARY | 2024-07-19 09:31 | XMS_ITS | Clinical Summary ---
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
== END 2024-07-19 09:02 | disposition home or self-care (01) ==
LOC: ANHIMG 09:03
PROVIDERS: PCP Nurse Practitioner Family; Visit Provider Nurse Practitioner Family
DX: Z12.31 Encounter for screening mammogram for malignant neoplasm of breast (principal); R92.8 Other abnormal and inconclusive findings on diagnostic imaging of breast
CPT/HCPCS: 77063; 77067

== ENCOUNTER 2024-07-31 08:53 | Emergency (ER) | payer OTHER, SELFPAY ==
[2024-07-31 09:08] VITALS: BP 115/67; PULSE 82; RESP 18; TEMP 36.4; O2SAT 100
[2024-07-31 09:28] LABS: EDSTREPNEGPOS1 Negative (Negative)
--- NOTE | 2024-07-31 09:32 | ED_ITS ---
HPI - URI/Sore Throat General Chief Complaint: Upper Respiratory Infection Stated Complaint: URI Time Seen by Provider: 07/31/24 09:32 Source: patient Mode of arrival: ambulatory Limitations: no limitations History of Present Illness HPI Narrative: Patient presents today complaining of sinus congestion, drainage, body aches, chills, and sore throat for 5 days. Denies any shortness of breath,difficulty swallowing, and fever. Related Data Allergies Allergy/AdvReac Type Severity Reaction Status Date / Time No Known Allergies Allergy Verified 07/31/24 09:05 Review of Systems Review of Systems: CONSTITUTIONAL: Denies fever. Reports body aches and chills. EYES: Denies visual changes, redness, or discharge. ENT: Reports congestion, rhinorrhea, and sore throat. CARDIOVASCULAR: Denies chest pain, palpitations, or edema. RESPIRATORY: Denies cough or dyspnea. GASTROINTESTINAL: Denies abdominal pain, nausea, vomiting, or diarrhea. GENITOURINARY: Denies dysuria or hematuria. SKIN: Denies rash, itching, or wounds. MUSCULOSKELETAL: Denies back pain, joint pain, or myalgia. NEUROLOGIC: Denies headache, numbness, tingling, or weakness. PSYCH: Denies depression or anxiety. All systems reviewed & are unremarkable except as noted in HPI and below PMFSH Past Medical History Medical History (Updated 07/31/24 @ 09:42 by Yvonne Bob APRN) Screening for STD (sexually transmitted disease) Colon cancer screening History of shingles Menorrhagia Fibroid uterus Enlarged uterus Pneumonia due to 2019 novel coronavirus Exposure to COVID-19 virus Allergic rhinitis Surgical History Surgical History S/P nasal surgery Family History Family History Mother Patient's mother is in good health Father Patient's father is in good health Sibling Patient's sister is in good health Social History Social History Smoking status: Never smoker Second hand tobacco smoke exposure: No Alcohol intake: never Substance use: never Substance use type: does not use Lack of Transportation: No Lack of Food: Sometimes True Current Housing: I Have Housing Concerned About Future Housing: No Difficulty Paying Gas/Electric Bills: YES Difficulty Paying for Meds: No Currently Unemployed: No Education: Bachelor's Degree Difficulty w/ Childcare or Family Care: YES Living arrangements: with family Spiritual care concerns: No Exam Narrative: GENERAL: Well-appearing, well-nourished, and in no acute distress. HEAD: Normocephalic, atraumatic. EYES: EOMI. No redness or drainage. Conjunctivae normal. ENT: Mucous membranes pink and moist. TMs normal bilaterally. Uvula midline. Post nasal drainage and redness to throat noted. NECK: Normal AROM. Supple. No lymphadenopathy. CHEST: No respiratory distress. Clear to auscultation. HEART: Regular rate and rhythm. No murmur appreciated. Normal peripheral pulses. MUSCULOSKELETAL: No bony tenderness. EXTREMITIES: Normal range of motion. No edema. SKIN: Warm, dry, no rash. Capillary refill normal. Normal skin turgor. NEURO: No focal deficits. Alert and oriented x3. Gait steady. PSYCH: Normal affect. No signs of depression or anxiety. Course Course Level of Care: Express Care Visit Vital Signs Vital signs: Vital Signs Temperature 97.6 F 07/31/24 09:08 Pulse Rate 82 07/31/24 09:08 Respiratory Rate 18 07/31/24 09:08 Blood Pressure 115/67 07/31/24 09:08 Pulse Oximetry 100 07/31/24 09:08 Oxygen Delivery Room Air 07/31/24 09:08 Temperature 97.6 F 07/31/24 09:08 Pulse Rate 82 07/31/24 09:08 Respiratory Rate 18 07/31/24 09:08 Blood Pressure 115/67 07/31/24 09:08 Pulse Oximetry 100 07/31/24 09:08 Oxygen Delivery Room Air 07/31/24 09:08 reviewed. MDM - URI/Sore Throat MDM Narrative Medical decision making narrative: Patient presents today with sinus congestion, drainage, body aches, chills, sore throat. Strep test negative. Flu and COVID negative as well. Reviewed prescriptions with patient. Patient advised when to go to ER. Lab Data Labs: Lab Results 07/31/24 07/31/24 Range/Units 09:26 09:31 POC Influenza A Ag Negative (Negative) POC Influenza B Ag Negative (Negative) POC SARS CoV-2 Ag Negative (Negative) POC Grp A Strep Screen Negative (Negative) Critical Care Time Critical Care Time Critical Care Time: No Discharge Plan Discharge Clinical Impression: Upper respiratory infection Patient Disposition: Home Condition: Stable Instructions: Sinusitis (ED) Additional Instructions: Rapid strep swab was negative today You will be notified in a few days if the culture comes back positive for strep, and appropriate antibiotics will be called in at that time. if symptoms are due to a viral illness, it is not treated with antibiotics. Viral symptoms can be present for up to 10-14 days. Recommendations: Flonase spray and Zyrtec for sinus congestion Cough syrup may cause drowsiness; avoid driving or take it at night time. Tylenol every 8 hours as needed for pain/fever Soft foods, cool liquids, warm tea. Gargle with warm saltwater twice a day. Chloraseptic spray and throat lozenges. Rest and stay hydrated. --Follow up with your PCP --Go to the ER immediately if you cannot swallow your saliva, trouble breathing/wheezing, throat swelling, pain is persistent and severe Patient Language: Vietnamese Prescriptions: New prednisone 20 mg tablet 40 mg PO DAILY 5 Days Qty: 10 0RF benzonatate 200 mg capsule 200 mg PO TID PRN (Reason: cough) Qty: 20 0RF No Action fluticasone propionate [Flonase Allergy Relief] 50 mcg/actuation spray,suspension 2 spray intranasal DAILY Qty: 16 2RF Rx Instructions: administer into each nostril Follow-up/Referrals: Marilyn Ramirez APRN [Primary Care Provider] - Stand Alone Forms: Work/School Release IP
[2024-07-31 09:33] LABS: EDCOVIDSCREEN Negative (Negative); EDINFLUASCREEN Negative (Negative); EDINFLUBSCREEN Negative (Negative)
== END 2024-07-31 10:02 | disposition home or self-care (01) ==
PROVIDERS: PCP Nurse Practitioner Family
DX: J06.9 Acute upper respiratory infection, unspecified (principal); Z20.822 Contact with and (suspected) exposure to COVID-19
CPT/HCPCS: 87081; 87426; 87804; 87880; 99213; G0463

== ENCOUNTER 2024-08-22 10:23 | Outpatient (CLI) | payer OTHER, SELFPAY ==
--- NOTE | ~2024-08-22 | MMUS_ITS ---
EXAMINATION: MM diagnostic gretchen RT w chacorta, US breast RT limited HISTORY: Follow-up right breast asymmetries. TECHNIQUE: Additional 3-D tomosynthesis images of the right breast were performed and synthetic 2-D i mages were generated. CAD analysis was submitted and interpreted. High resolution Limited right breas t ultrasound was performed. COMPARISON: Comparison to multiple prior studies sequentially, with oldest reviewed study dated 10/2018. BREAST PARENCHYMAL COMPOSITION: Dense: The breasts are heterogeneously dense, which may obscure small masses FINDINGS: MAMMOGRAPHIC FINDINGS: There are persistent asymmetries in the upper aspect of the right breast, although no discrete mass o r architectural distortion is seen. There are no suspicious calcifications. ULTRASOUND: Limited right breast ultrasound: At 10:00, 3 cm from the nipple there is a 5 mm cyst. At 12:00, 3 cm from the nipple there is 3 mm cyst. No suspicious masses to suggest malignancy. IMPRESSION: 1. No evidence for malignancy in the right breast. 2. Routine yearly screening mammogram and regular clinical breast examination are recommended. BI-RADS Category 2: Benign finding(s). Reviewed, dictated and finalized at location A. IMPRESSION: 1. No evidence for malignancy in the right breast. 2. Routine yearly screening mammogram and regular clinical breast examination a re recommended. BI-RADS Category 2: Benign finding(s).
--- OUTSIDE RECORDS SUMMARY | 2024-08-22 11:18 | XMS_ITS | Clinical Summary ---
Author Organization [facility] Address [address] [place] [id number] Phone Care Team Providers Care Roto Gravure Press Operator Name Role Phone Raleigh Jarrell MD Primary Care Provider [phone] Social History Tobacco Use Types Packs/Day Years [...] of 3 - 19+ 3-dose series) 1998 HPV/Cotest (21-29) 02/27/2000 CERVICAL CANCER SCREENING 2009 HPV/Cotest (30-65) [...] patient's age to complete this topic Insurance [employer] PPO [id number] Care Teams Roto Gravure Press Operator Relationship Specialty Start Date End Date Raleigh Jarrell MD [address] [facility] [address] [place] [address] PCP - General Internal Medicine 11/19/16
--- OUTSIDE RECORDS SUMMARY | 2024-08-22 11:18 | XMS_ITS | Referral Summary ---
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
--- OUTSIDE RECORDS SUMMARY | 2024-08-22 11:18 | XMS_ITS | Clinical Summary ---
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
--- OUTSIDE RECORDS SUMMARY | 2024-08-22 11:18 | XMS_ITS | Clinical Summary ---
Author Organization [facility] Address [address] [place] [address] Care Team Providers Care Feeder Catcher Name Role Phone Raleigh Jarrell MD Primary Care Provider [phone] Source Comments [facility],non-owned Affiliates and Associated Physician Practices is amultiple site organization consisting of ambulatory clinics and hospital sitesin [place], [place], [place] and [place]. This disclosure is being madepursuant to the Care Everywhere program and may not contain all information available regarding this patient. Last updated 18.[facility] [employer] Allergies No known active allergies Immunizations Immunization Administration Dates Next Due INFLUENZA VACCINE, QUADR. 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 Gender Identity Not on file Sexual Orientation [...] SCREENING 1979 LIPID TESTING 1979 MAMMOGRAM 1979 HIV SCREENING 1994 HEPATITIS C SCREENING 02/21/1997 HEPATITIS B VACCINE (1 of 3 - 19+ 3-dose series) 1998 COVID-19 VACCINE (1 2023-2 5 season) 2023 DEPRESSION SCREENING 04/19/2024 INFLUENZA VACCINE (Season Ended) 2024 04/11/20 17 DTAP/TDAP/TD VACCINES (2 - T d or [...] patient's age to complete this topic Insurance [employer] Care Teams Feeder Catcher Relationship Specialty Start Date End Date Raleigh Jarrell MD [address] [facility] [address] [place] [address] PCP - General Internal Medicine 04/11/17
== END 2024-08-22 10:24 | disposition home or self-care (01) ==
PROVIDERS: PCP Nurse Practitioner Family; Visit Provider Nurse Practitioner Family
DX: R92.8 Other abnormal and inconclusive findings on diagnostic imaging of breast (principal); M85.80 Other specified disorders of bone density and structure, unspecified site
CPT/HCPCS: 76642; 77061; 77065; G0279

== ENCOUNTER 2024-08-25 10:11 | Emergency (ER) | payer OTHER, SELFPAY ==
--- OUTSIDE RECORDS SUMMARY | 2024-08-25 10:14 | XMS_ITS | Clinical Summary ---
Author Organization [facility] Address [address] [place] [address] Care Team Providers Care Legal Editor Name Role Phone Raleigh Jarrell MD Primary Care Provider [phone] Source Comments [facility],non-owned Affiliates and Associated Physician Practices is amultiple site organization consisting of ambulatory clinics and hospital sitesin [place], [place], [place] and [place]. This disclosure is being madepursuant to the Care Everywhere program and may not contain all information available regarding this patient. Last updated 18.[facility] [employer]lue Allergies No known active allergies Immunizations Immunization Administration Dates Next Due INFLUENZA VACCINE, QUADR. 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
--- OUTSIDE RECORDS SUMMARY | 2024-08-25 10:14 | XMS_ITS | Referral Summary ---
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
--- OUTSIDE RECORDS SUMMARY | 2024-08-25 10:14 | XMS_ITS | Clinical Summary ---
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 HMO/PPO Address: [facility] [address] [place] [address] Care Teams Solder Sprayer Relationship Specialty Start Date End Date Obi Seals PCP - General 01/07/09
--- OUTSIDE RECORDS SUMMARY | 2024-08-25 10:14 | XMS_ITS | Clinical Summary ---
Author Organization [facility] Address [address] [place] [phone] Phone Care Team Providers Care Auto Accessories Installer Name Role Phone Raleigh Jarrell MD Primary Care Provider [phone] Social History Tobacco Use Types Packs/Day Years [...] complete this topic Insurance [employer] PPO [id number] Care Teams Auto Accessories Installer Relationship Specialty Start Date End Date Raleigh Jarrell MD [address] [facility] [address] [place] [address] PCP - General Internal Medicine 11/19/16
--- NOTE | 2024-08-25 10:16 | ED.EYEPROB ---
HPI - Eye Problem General Chief complaint: Eye Problems Stated complaint: [facility] Time Seen by Provider: 08/25/24 10:35 Source: patient Mode of arrival: ambulatory Limitations: no limitations History of Present Illness HPI Narrative: Christelle is a 44-year-old female patient presenting to the clinic today with complaints possible pinkeye in the left eye. She reports she developed blood in her eye of on . States that happen after she blew her nose really hard. Denies any eye pain or injury. No visual changes. Visual acuity is 20/20 in the left eye. She went to the eye doctor's office today and they did not have an eye doctor on staff and told her to come into the urgent care. Related Data Allergies Allergy/AdvReac Type Severity Reaction Status Date / Time No Known Allergies Allergy Verified 08/25/24 10:23 Review of Systems Review of Systems: Pertinent positives per HPI. Patient denies any fever, chills, rash, headache, visual changes, dizziness, cough, shortness of breath, chest pain, palpitations, nausea, vomiting, diarrhea, constipation, abdominal pain, or any urinary issues. [facility] Past Medical History Medical History (Updated 08/25/24 @ 10:40 by En Ring APRN) Screening for STD (sexually transmitted disease) Colon cancer screening History of shingles Menorrhagia Fibroid uterus Enlarged uterus Pneumonia due to 2019 novel coronavirus Exposure to COVID-19 virus Allergic rhinitis Surgical History Surgical History S/P nasal surgery Family History Family History Mother Patient's mother is in good health Father Patient's father is in good health Sibling Patient's sister is in good health Social History Social History Smoking status: Never smoker Second hand tobacco smoke exposure: No Alcohol intake: never Substance use: never Substance use type: does not use Lack of Transportation: No Lack of Food: Sometimes True Current Housing: I Have Housing Concerned About Future Housing: No Difficulty Paying Gas/Electric Bills: YES Difficulty Paying for Meds: No Currently Unemployed: No Education: Bachelor's Degree Difficulty w/ Childcare or Family Care: YES Living arrangements: with family Spiritual care concerns: No Comments At the time of my signature, I reviewed and agree with the nursing past medical, surgical, social, and family history. There is no relevant family history pertinent to the patient complaint. Exam Narrative: General: Well-developed, well nourished, in no apparent distress Head: Normocephalic, atraumatic Eyes: Pupils equally round and reactive to light bilaterally, EOM intact, right sclera and conjunctive clear, subconjunctival hemorrhage noted over the left lateral lower eye sclera, no discharge, lids normal Ears: TMs intact and clear, ear canals clear, no drainage, grossly hearing normal. Nose: Nares patent, no discharge, no inflammation, no sinus tenderness. Mouth: Oral pharynx without lesions or masses, good dentition, MMM. Neck: Supple, trachea midline, no enlargement of anterior or posterior cervical nodes, no thyroid masses or goiter palpable. Cardio: Regular rate and rhythm, s1 and s2 normal, no murmur appreciated. Resp: Clear to auscultation bilaterally, no rhonchi, rales, wheezing or rubs Course Course Emergency Course: Portions of this record may have been created with voice recognition software. Level of Care: Express Care Visit Vital Signs Vital signs: Vital Signs Temperature 36.4 C L 08/25/24 10:23 Pulse Rate 73 08/25/24 10:23 Respiratory Rate 17 08/25/24 10:23 Blood Pressure 112/79 08/25/24 10:23 Pulse Oximetry 100 08/25/24 10:23 Oxygen Delivery Room Air 08/25/24 10:23 Temperature 36.4 C L 08/25/24 10:23 Pulse Rate 73 08/25/24 10:23 Respiratory Rate 17 08/25/24 10:23 Blood Pressure 112/79 08/25/24 10:23 Pulse Oximetry 100 08/25/24 10:23 Oxygen Delivery Room Air 08/25/24 10:23 Vital signs reviewed MDM - Eye Problem MDM Narrative Medical decision making narrative: At the time of visit patient is resting comfortably on the exam table. Patient appears to be nontoxic. Plan: I suspect patient has a left eye subconjunctival hemorrhage. No obvious trauma in the patient denies any eye pain. No visual changes. Supportive measures were discussed with the patient and they voiced understanding discharge instructions and agrees to treatment plan. Return precautions reviewed Differential Diagnosis Differential diagnosis: Likely corneal abrasion, conjunctivitis, acute iritis, hyphema, periorbital cellulitis, subconjunctival hemorrhage, glaucoma, corneal ulcer and ruptured globe Discharge Plan Discharge Clinical Impression: Subconjunctival hemorrhage of left eye Patient Disposition: Home Condition: Stable Instructions: Antibiotic Form Additional Instructions: You have a subconjunctival hemorrhage and the left eye There is no treatment for this and should resolve on its own. Follow-up with eye doctor next week if symptoms persist Go to the emergency room if you develop eye pain, worsening of subconjunctival hemorrhage, or visual changes May follow-up with [facility] in [place], [place]- May call office to schedule an appointment- Patient Language: [place] Prescriptions: No Action fluticasone propionate [Flonase Allergy Relief] 50 mcg/actuation spray,suspension 2 spray intranasal DAILY Qty: 16 2RF Rx Instructions: administer into each nostril Follow-up/Referrals: Marilyn Ramirez APRN [Primary Care Provider] - Time of Disposition: 10:37 Quality NIHSS Nursing Documentation ED NIHSS nursing documentation: reviewed/agree
[2024-08-25 10:23] VITALS: BP 112/79; PULSE 73; RESP 17; TEMP 36.4; O2SAT 100
== END 2024-08-25 10:42 | disposition home or self-care (01) ==
PROVIDERS: Emergency Provider Nurse Practitioner Family; PCP Nurse Practitioner Family
DX: H11.32 Conjunctival hemorrhage, left eye (principal)
CPT/HCPCS: 99211; G0463